=== PATIENT | female | born 1995 | race Caucasian/White ===

== ENCOUNTER 2019-05-25 00:09 | Emergency (ER) | payer OTHER ==
[2019-05-25 01:57] LABS: ABSOLUTE EOSINOPHILS # (AUTO) 0.4 10^3/uL (0.0-0.6); ABSOLUTE LYMPHOCYTES (AUTO) 4.2 10^3/uL (0.5-4.7); ABSOLUTE NEUT (AUTO) 6.6 10^3/uL (1.7-8.2); BASOPHILS % (AUTO) 0.4 % (0-2); EOSINOPHILS % (AUTO) 3.1 % (0-6); HEMATOCRIT 43.8 % (36.0-47.0); HEMOGLOBIN 14.7 g/dL (12.0-15.5); LYMPHOCYTES % (AUTO) 34.4 % (13-45); MEAN CORPUSCULAR HEMOGLOBIN 29.4 pg (27.0-33.4); MEAN CORPUSCULAR HGB CONC 33.7 g/dL (32.0-36.0); MEAN CORPUSCULAR VOLUME 88 fl (80-97); PLATELET COUNT 223 10^3/uL (150-450); SEGMENTED NEUTROPHILS % (AUTO) 54.1 % (42-78); TOTAL CELLS COUNTED % (AUTO) 100 %; WHITE BLOOD COUNT 12.2 10^3/uL (4.0-10.5)
[2019-05-25 02:00] LABS: ALBUMIN 4.3 g/dL (3.5-5.0); ALKALINE PHOSPHATASE 74 U/L (38-126); ANION GAP 11 (5-19); ASPARTATE AMINO TRANSFERASE 42 U/L (14-36); BILIRUBIN,DIRECT 0.1 mg/dL (0.0-0.4); BILIRUBIN,TOTAL 0.4 mg/dL (0.2-1.3); BLOOD UREA NITROGEN 13 mg/dL (7-20); CALCIUM 9.4 mg/dL (8.4-10.2); CARBON DIOXIDE 26 mmol/L (22-30); CHLORIDE 106 mmol/L (98-107); GLUCOSE 98 mg/dL (75-110); POTASSIUM 4.1 mmol/L (3.6-5.0); TOTAL PROTEIN 7.4 g/dL (6.3-8.2)
[2019-05-25 02:10] LABS: APPEARANCE,URINE CLOUDY; BILIRUBIN,URINE NEGATIVE (NEGATIVE); COLOR,URINE YELLOW; GLUCOSE, URINE NEGATIVE (NEGATIVE); KETONES,URINE NEGATIVE (NEGATIVE); LEUKOCYTE ESTERASE,URINE SMALL (NEGATIVE); NITRITE,URINE NEGATIVE (NEGATIVE); PROTEIN,URINE NEGATIVE (NEGATIVE); URINE SPECIFIC GRAVITY 1.019; UROBILINOGEN,URINE NEGATIVE mg/dL (<2.0)
[2019-05-25] MEDS ORDERED: LIDOCAINE 2% VISCOUS SOLN 20 ML UDCUP PO ONE (03:08)
[2019-05-25] MEDS ORDERED: MAG HYDROX/AL HYDROX/SIMETH SUSP 30 ML UDCUP PO ONE (03:08)
--- NOTE | 2019-05-25 03:11 | ER Document Report ---
ED General - General Chief Complaint: Abdominal Pain Stated Complaint: ABDOMINAL PAIN Time Seen by Provider: 05/25/19 02:48 Primary Care Provider: JUAN JOSÉ WEAVER FNP-C [Primary Care Provider] - Follow up as needed - HPI Notes: Patient is a very pleasant 24-year-old female who presents emergency department for evaluation of upper abdominal pain. It started about 8 PM. She states that actually started before she was going to eat. It was a pressure sensation, with occasional burning up in her chest. She had similar episodes repeatedly over the last month or 2. She states that she does take Tums about once a week for heartburn. She denies any melena or hematochezia. No fevers or chills. She has some occasional nausea associated with it but no vomiting. Normal bowel movements, last bowel movement was today. She denies any vaginal discharge. She is never had a menstrual period, this is likely secondary to her PCOS per her physician. No urinary symptoms. - Related Data Allergies/Adverse Reactions: acetaminophen [From Percocet] Allergy (Verified 05/25/19 00:25) oxycodone [From Percocet] Allergy (Verified 05/25/19 00:25) Home Medications: None Past Medical History - General Information source: Patient - Social History Smoking Status: Current Some Day Smoker Frequency of alcohol use: Social Family History: Reviewed & Not Pertinent Patient has suicidal ideation: No Patient has homicidal ideation: No Endocrine Medical History: Reports: Hx Diabetes Mellitus Type 2 - Insulin re sistance Renal/ Medical History: Reports: Hx Ovarian Cysts - PCOS GI Medical History: Reports: Hx Gastroesophageal Reflux Disease - History of H. pylori, diagnosed by EGD in 2018 Past Surgical History: Reports: Hx Tonsillectomy Review of Systems - Review of Systems Constitutional: No symptoms reported EENT: No symptoms reported Cardiovascular: No symptoms reported Respiratory: No symptoms reported Gastrointestinal: See HPI Genitourinary: No symptoms reported Female Genitourinary: No symptoms reported Musculoskeletal: No symptoms reported Skin: No symptoms reported Neurological/Psychological: No symptoms reported Physical Exam - Vital signs Vitals: Temp Pulse Resp BP Pulse Ox 98.7 F 96 22 H 135/84 H 97 05/25/19 00:22 05/25/19 00:22 05/25/19 00:22 05/25/19 00:22 05/25/19 00:22 - Notes Notes: Is a very pleasant 24-year-old female who appears her stated age in no acute distress. Vital signs reviewed, please refer to chart. Head is normocephalic, atraumatic. Pupils equal round, reactive to light. Neck is supple without meningismus. Heart is regular rate and rhythm. Lungs are clear to auscultation bilaterally. Abdomen is soft, minimally tender in the epigastrium without rebound or guarding, normoactive bowel sounds throughout. Extremities without cyanosis, clubbing. Posterior calves are nontender. Peripheral pulses are equal. Skin is warm and dry. Patient is awake, alert, neurological exam is nonfocal. Course - Re-evaluation Re-evalutation: 05/25/19 03:10 Patient presents emergency department for evaluation. Laboratory investigations were obtained and are largely unremarkable, with the exception of a fairly mildly elevated white blood cell count. She has no signs of infection in her urine. Her lecture lites are normal. We talked about the differential diagnosis for this. Certainly gastritis is high on my list. She is given a GI cocktail. We also discussed the possibility of a biliary colic/gallbladder etiology. At this point she showed no signs of a surgical abdomen. Her pain is much improved over what it was upon arrival. She is told to try [id number] medication like omeprazole daily, dietary changes, and close follow-up. She is amenable to this plan was discharged. - Vital Signs Vital signs: Temp Pulse Resp BP Pulse Ox 98.1 F 80 18 140/86 H 98 05/25/19 03:35 05/25/19 03:35 05/25/19 03:35 05/25/19 03:35 05/25/19 03:35 - Laboratory Result Diagrams: 05/25/19 01:33 05/25/19 01:33 Laboratory results interpreted by me: 05/25/19 05/25/19 05/25/19 01:33 01:33 01:33 WBC 12.2 H AST 42 H Ur Leukocyte Esterase SMALL H Discharge - Discharge Clinical Impression: Epigastric abdominal pain, Gastritis Condition: Stable Disposition: HOME, SELF-CARE Instructions: Abdominal Pain ([facility]), Gastritis ([facility]) Additional Instructions: Stay hydrated, avoid spicy, acidic, greasy foods. Start medication like omeprazole, available [id number], and give this 1 to 2 weeks to see if this improves her symptoms. If you develop fever, vomiting, yellowing of the skin or eyes, or any other new or concerning symptoms, please return immediately to the emergency department for reevaluation. Forms: Return to Work Referrals: JUAN JOSÉ WEAVER FNP-C [Primary Care Provider] - Follow up as needed
[2019-05-25 03:36] VITALS: BP 140/86
== END 2019-05-25 03:38 | disposition home or self-care (01) ==
LOC: ER 00:09
DX: K29.70 Gastritis, unspecified, without bleeding (principal); R10.13 Epigastric pain; F17.200 Nicotine dependence, unspecified, uncomplicated; E11.9 Type 2 diabetes mellitus without complications; E88.81 Metabolic syndrome and other insulin resistance; Z88.6 Allergy status to analgesic agent
CPT/HCPCS: 99284; 36415; 83690; 85025; 81025; 80053; 81001; J3490